=== PATIENT | female | born 2000 | race American Indian/Alaskan Native ===

== ENCOUNTER 2021-02-03 08:49 | Emergency (ER) | payer SELFPAY ==
--- NOTE | 2021-02-03 09:13 | EDM.PDOC ---
ED HPI GENERAL MEDICAL PROBLEM - General Chief Complaint: Respiratory Problem Stated Complaint: COUGH,RUNNY NOSE Time Seen by Provider: 02/03/21 08:53 Source of Information: Reports: Patient History Limitations: Reports: No Limitations - History of Present Illness INITIAL COMMENTS - FREE TEXT/NARRATIVE: Patient is a 20-year-old female who presents today for nasal congestion and runny nose for the past 3 days. Patient states that she has not tried any [id number] but states she is likely going to make sure that she not have an infection. Patient denies any facial pain or sinus pains no shortness of breath no fever chills no cough no nausea or vomiting or other complaints. Throat Pain Score (Numeric/FACES): 2 - Related Data Allergies Allergy/AdvReac Type Severity Reaction Status Date / Time No Known Allergies Allergy Verified 02/03/21 09:02 Home Meds: Home Meds . [No Known Home Meds] 02/03/21 [History] Past Medical History - Past Health History Medical/Surgical History: Denies Medical/Surgical History - Infectious Disease History Infectious Disease History: Reports: Measles Social & Family History - Family History Family Medical History: No Pertinent Family History - Tobacco Use Tobacco Use Status *Q: Never Tobacco User - Caffeine Use Caffeine Use: Reports: None - Recreational Drug Use Recreational Drug Use: No ED ROS GENERAL - Review of Systems Review Of Systems: See Below Constitutional: Reports: No Symptoms HEENT: Reports: Rhinitis Respiratory: Reports: No Symptoms Cardiovascular: Reports: No Symptoms Endocrine: Reports: No Symptoms GI/Abdominal: Reports: No Symptoms : Reports: No Symptoms Musculoskeletal: Reports: No Symptoms Skin: Reports: No Symptoms Neurological: Reports: No Symptoms Psychiatric: Reports: No Symptoms Hematologic/Lymphatic: Reports: No Symptoms Immunologic: Reports: No Symptoms ED EXAM, GENERAL - Physical Exam Exam: See Below Exam Limited By: No Limitations General Appearance: Alert, WD/WN, No Apparent Distress Nose: Normal Inspection, Normal Mucosa. No: Nasal Drainage Head: Atraumatic Neck: Normal Inspection, Supple Respiratory/Chest: No Respiratory Distress, Lungs Clear, Normal Breath Sounds Cardiovascular: Normal Peripheral Pulses, Regular Rate, Rhythm GI/Abdominal: Normal Bowel Sounds, Soft, Non-Tender Extremities: Normal Inspection, Normal Range of Motion Neurological: Alert, Oriented Course - Vital Signs Last Recorded V/S: Last Vital Signs Temp 96.3 F L 02/03/21 09:03 Pulse 69 02/03/21 09:03 Resp 16 02/03/21 09:03 BP 127/80 02/03/21 09:03 Pulse Ox 97 02/03/21 09:03 Departure - Departure Time of Disposition: 09:12 Disposition: Home, Self-Care 01 Condition: Good Clinical Impression: URI (upper respiratory infection) - Discharge Information *PRESCRIPTION DRUG MONITORING PROGRAM REVIEWED*: Not Applicable *COPY OF PRESCRIPTION DRUG MONITORING REPORT IN PATIENT HAIM: Not Applicable Instructions: Upper Respiratory Infection, Adult Referrals: PCP,None [Primary Care Provider] - Additional Instructions: The following information is given to patients seen in the emergency department who are being discharged to home. This information is to outline your options for follow-up care. We provide all patients seen in our emergency department with a follow-up referral. The need for follow-up, as well as the timing and circumstances, are variable depending upon the specifics of your emergency department visit. If you don't have a primary care physician on staff, we will provide you with a referral. We always advise you to contact your personal physician following an emergency department visit to inform them of the circumstance of the visit and for follow-up with them and/or the need for any referrals to a consulting specialist. The emergency department will also refer you to a specialist when appropriate. This referral assures that you have the opportunity for follow-up care with a specialist. All of these measure are taken in an effort to provide you with optimal care, which includes your follow-up. Under all circumstances we always encourage you to contact your private physician who remains a resource for coordinating your care. When calling for follow-up care, please make the office aware that this follow-up is from your recent emergency room visit. If for any reason you are refused follow-up, please contact the [facility] Emergency Department at and asked to speak to the emergency department charge nurse. Please follow up with your primary care physician. If you do not have a primary care physician, see below: [facility] [address] [place] [id number] [facility] [address] [place] [address] He was seen today for a runny nose and congestion. You likely have upper respiratory tract infection and we recommended taking [id number] medications for. If you develop any fever chills other concerning symptom please return to the ED otherwise follow-up with your primary care physician. Sepsis Event Note (ED) - Evaluation Sepsis Screening Result: No Definite Risk - Focused Exam Vital Signs: Vital Signs Temp Pulse Resp BP Pulse Ox 02/03/21 09:03 96.3 F L 69 16 127/80 97 - Assessment/Plan Plan: Patient is a 20-year-old female presents today for nasal congestion. Patient on exam lungs are clear vital signs are stable likely be URI patient presents try [id number] medication.
== END 2021-02-03 09:21 | disposition home or self-care (01) ==
LOC: MW.ED 08:49
DX: J06.9 Acute upper respiratory infection, unspecified (principal)
CPT/HCPCS: 99283

== ENCOUNTER 2023-02-08 07:59 | Emergency (ER) | payer SELFPAY ==
[2023-02-08 08:23] LABS: APPEARANCE,URINE CLEAR; BILIRUBIN,URINE NEGATIVE (NEGATIVE); COLOR,URINE YELLOW; GLUCOSE,URINE NEGATIVE (NEGATIVE); KETONES,URINE NEGATIVE (NEGATIVE); LEUKOCYTE ESTERASE,URINE NEGATIVE (NEGATIVE); NITRITE,URINE NEGATIVE (NEGATIVE); OCCULT BLOOD,URINE MODERATE (NEGATIVE); PROTEIN,URINE NEGATIVE (NEGATIVE); UROBILINOGEN,URINE 0.2 EU/dL (<2.0)
[2023-02-08 08:23] LABS: BASOPHILS PERCENT AUTO 0.2 % (0.0-1.5); EOSINOPHILS ABSOLUTE AUTO 0.1 K/uL (0.0-0.7); EOSINOPHILS PERCENT AUTO 1.2 % (0.0-7.0); HEMATOCRIT 34.2 % (36.0-46.0); HEMOGLOBIN 10.3 g/dL (12.0-16.0); LYMPHOCYTES ABSOLUTE AUTO 2.4 K/uL (0.6-2.4); LYMPHOCYTES PERCENT AUTO 27.6 % (16.0-40.0); MEAN CORPUSCULAR HEMOGLOBIN 22.1 pg (27.0-32.0); MEAN CORPUSCULAR HGB CONC 30.1 g/dL (31.0-37.0); MEAN CORPUSCULAR VOLUME 73.4 fL (80.0-98.0); MONOCYTES ABSOLUTE AUTO 0.4 K/uL (0.0-0.8); MONOCYTES PERCENT AUTO 4.2 % (0.0-15.0); NEUTROPHILS ABSOLUTE AUTO 5.8 K/uL (1.4-5.7); NEUTROPHILS PERCENT AUTO 66.8 % (48.0-80.0); NRBC ABSOLUTE 0 K/uL; PLATELET COUNT,PLT 426 K/uL (150-400); RED BLOOD CELL COUNT 4.66 M/uL (4.30-5.90); WHITE BLOOD CELL COUNT,WBC 8.65 K/uL (4.0-11.0)
[2023-02-08 08:40] LABS: EPITHELIAL CELLS,URINE FEW (NONE-FEW); RBC,URINE 0-3 (0-2/HPF); WBC,URINE 0-2 (0-5/HPF)
[2023-02-08 08:51] LABS: A/G RATIO 0.8 (0.9-1.6); ALBUMIN 3.5 g/dL (3.4-5.0); BILIRUBIN TOTAL 0.4 mg/dL (0.2-1.0); CALCIUM 8.8 mg/dL (8.5-10.1); CARBON DIOXIDE,CO2 28.2 mmol/L (21.0-32.0); CREATININE 0.8 mg/dL (0.6-1.0); EST CRCL DRUG DOSING (CG) 102.39 mL/min; POTASSIUM,K 3.9 mmol/L (3.5-5.1); PROTEIN TOTAL,TP 7.7 g/dL (6.4-8.2)
== END 2023-02-08 09:12 | disposition home or self-care (01) ==
LOC: MW.ED 07:59
DX: O20.9 Hemorrhage in early pregnancy, unspecified (principal)
CPT/HCPCS: 36415; 80053; 81001; 84702; 85025; 86900; 86901; 99283; 99284

== ENCOUNTER 2023-02-10 10:50 | Emergency (ER) | payer SELFPAY | END 2023-02-10 13:45 | disposition home or self-care (01) | LOC: MW.ED 10:50 | DX: O20.9 Hemorrhage in early pregnancy, unspecified (principal) | CPT/HCPCS: 99283 ==

== ENCOUNTER 2024-12-14 18:45 | Inpatient (IN) | payer SELFPAY ==
[2024-12-14] MEDS ORDERED: Sodium Chloride 0.9% 2.5 ML Syringe FLUSH PRN (20:18)
[2024-12-14] MEDS ORDERED: Lidocaine 1% 50 ML MDV INJECT PRN (20:18)
[2024-12-14] MEDS ORDERED: Sodium Chloride 0.9% 20 ML SDV IV PRN (20:18)
[2024-12-14] MEDS ORDERED: Misoprostol 200 MCG Tab PO PRN (20:18)
[2024-12-14] MEDS ORDERED: Sodium Chloride 0.9% 10 ML Syringe FLUSH PRN (20:18)
[2024-12-14] MEDS ORDERED: Methylergonovine 0.2 MG/1 ML Amp IM PRN (20:18)
[2024-12-14] MEDS ORDERED: Carboprost Tromethamine 250 MCG/1 mL Vial IM PRN (20:18)
[2024-12-14] MEDS ORDERED: Water For Irrigation,Sterile 1,000 ML Container IRR PRN (20:18)
[2024-12-14] MEDS ORDERED: Terbutaline 1 MG/ML SDV SUBCUT PRN (20:18)
[2024-12-14] MEDS ORDERED: Ondansetron 4 MG/2 ML SDV IVPUSH PRN (20:18)
[2024-12-14] MEDS ORDERED: Oxytocin/0.9 % Sodium Chloride 30 UNIT/500 ML BAG IV SCH (20:30)
[2024-12-14] MEDS: Dinoprostone 10 MG Insert VAG PRN (21:12)
[2024-12-14] MEDS: Ampicillin 2 GM in Sodium Chloride 0.9% 100 ML IV ONE (21:13)
[2024-12-14 21:34] LABS: HEMATOCRIT 30.4 % (37.0-47.0); MEAN CORPUSCULAR HEMOGLOBIN 26.7 pg (28.0-32.0); MEAN CORPUSCULAR HGB CONC 32.9 g/dL (32.0-36.0); MEAN CORPUSCULAR VOLUME 81.3 fL (83.0-99.0); MEAN PLATELET VOLUME 10.8 fL (9.4-12.3); PLATELET COUNT,PLT 358 K/uL (150-400); RED BLOOD CELL COUNT 3.74 M/uL (4.10-5.30); WHITE BLOOD CELL COUNT,WBC 10.45 K/uL (3.9-11.3)
[2024-12-14] MEDS: Tranexamic Acid in NACL,ISO-OS 1,000 MG in Premix Bag 1 BAG IV ONE (22:06)
[2024-12-15] MEDS: Ampicillin 1 GM in Sodium Chloride 0.9% 50 ML IV SCH (00:47)
[2024-12-15] MEDS ORDERED: Phenylephrine HCl In 0.9% NaCl 1 MG/10 ML Syringe IVPUSH PRN (07:28)
[2024-12-15] MEDS ORDERED: ePHEDrine 50 MG/ML SDV IVPUSH PRN (07:28)
[2024-12-15] MEDS ORDERED: dexmedeTOMIDine HCl 200 MCG/2 ML SDV EPIDUR SCH (07:30)
[2024-12-15] MEDS: Oxytocin/0.9 % Sodium Chloride 30 UNIT/500 ML BAG IV SCH (09:53)
[2024-12-15] MEDS: Lactated Ringers 1,000 ML IV SCH (14:52)
[2024-12-15] MEDS: Butorphanol 1 MG/ML SDV IVPUSH PRN (21:02)
[2024-12-16] MEDS: Ropivacaine HCl/PF 400 MG in Premix Bag 1 BAG EPIDUR SCH (03:02)
[2024-12-16] MEDS ORDERED: Bupivacaine 0.5% 10 ML SDV ONE (18:12)
[2024-12-16] MEDS ORDERED: fentaNYL 100 MCG/2 ML SDV ONE ×2 (18:12→18:42)
[2024-12-16] MEDS ORDERED: Ondansetron 4 MG/2 ML SDV ONE (18:14)
[2024-12-16] MEDS ORDERED: Morphine PF 10 MG/10 ML SDV ONE (18:21)
[2024-12-16] MEDS ORDERED: Oxytocin 10 Units/1 ML SDV ONE (18:21)
[2024-12-16] MEDS ORDERED: Dexamethasone 4 MG/ML 5 ML MDV ONE (18:21)
[2024-12-16] MEDS ORDERED: ceFAZolin 2 GM Vial ONE (18:32)
[2024-12-16] MEDS ORDERED: Midazolam 1 MG/ML 2 ML SDV ONE (18:37)
[2024-12-16] MEDS ORDERED: Ropivacaine 0.5% 5 MG/ML 30 ML SDV ONE (18:48)
[2024-12-16] MEDS ORDERED: Ondansetron 4 MG/2 ML SDV IVPUSH PRN ×3 (18:59→19:44)
[2024-12-16] MEDS ORDERED: Phenylephrine HCl In 0.9% NaCl 1 MG/10 ML Syringe IVPUSH PRN (18:59)
[2024-12-16] MEDS ORDERED: fentaNYL 100 MCG/2 ML SDV IVPUSH PRN (18:59)
[2024-12-16] MEDS ORDERED: Metoclopramide 10 MG/2 ML SDV IVPUSH PRN (18:59)
[2024-12-16] MEDS ORDERED: HYDROmorphone 1 MG/ML Syringe IVPUSH PRN (18:59)
[2024-12-16] MEDS ORDERED: Nalbuphine 10 MG/1 ML Vial IVPUSH PRN (18:59)
[2024-12-16] MEDS ORDERED: diphenhydrAMINE 50 MG/ML SDV IVPUSH PRN (18:59)
[2024-12-16] MEDS ORDERED: Morphine 2 MG/ML SYRINGE IVPUSH PRN (18:59)
[2024-12-16] MEDS ORDERED: Naloxone 0.4 MG/ML SDV IVPUSH PRN ×2 (18:59→19:44)
[2024-12-16] MEDS ORDERED: Albuterol 0.083% 2.5 MG/3 ML Neb Soln NEB PRN (18:59)
[2024-12-16] MEDS ORDERED: fentaNYL 50 MCG/ML SDV IVPUSH PRN (18:59)
[2024-12-16] MEDS ORDERED: Aluminum Hydroxide/Magnesium Hydroxide/Simethicone Susp 30 ML Cup PO PRN (19:44)
[2024-12-16] MEDS ORDERED: Oxytocin 10 Units/1 ML SDV IM PRN (19:44)
[2024-12-16] MEDS ORDERED: Acetaminophen/oxyCODONE 325-5 MG Tab PO PRN ×2 (19:44)
[2024-12-16] MEDS ORDERED: Bisacodyl 10 MG Supp RECTAL PRN (19:44)
[2024-12-16] MEDS ORDERED: Misoprostol 200 MCG Tab RECTAL PRN (19:44)
[2024-12-16] MEDS ORDERED: Methylergonovine 0.2 MG/1 ML Amp IM PRN (19:44)
[2024-12-16] MEDS ORDERED: Lanolin 100% Cream 7 GM Tube TOP PRN (19:44)
[2024-12-16] MEDS ORDERED: Lactated Ringers 1,000 ML IV SCH (19:45)
[2024-12-16 20:32] LABS: PH,UMBILICAL ARTERIAL 7.27 (7.18-7.38); PH,UMBILICAL VENOUS 7.33 (7.25-7.45)
[2024-12-16] MEDS: Docusate Sodium 100 MG Cap PO SCH (21:00)
[2024-12-16] MEDS: Ketorolac 30 MG/ML SDV IVPUSH SCH (21:54)
[2024-12-16] MEDS: diphenhydrAMINE 50 MG/ML SDV IVPUSH PRN (21:55)
[2024-12-17] MEDS: Simethicone 80 MG Tab.Chew PO SCH (00:31)
[2024-12-17 06:30] LABS: HEMATOCRIT 26.9 % (37.0-47.0); HEMOGLOBIN 8.7 g/dL (12.0-16.0)
[2024-12-17] MEDS: Sodium Ferric Gluconate Cmplex 125 MG in Sodium Chloride 0.9% 100 ML IV SCH (11:17)
[2024-12-18] MEDS: Ibuprofen 800 MG Tab PO PRN (05:21)
[2024-12-18 06:20] LABS: HEMATOCRIT 24.5 % (37.0-47.0); HEMOGLOBIN 7.8 g/dL (12.0-16.0); MEAN CORPUSCULAR HEMOGLOBIN 26.4 pg (28.0-32.0); MEAN CORPUSCULAR HGB CONC 31.8 g/dL (32.0-36.0); MEAN CORPUSCULAR VOLUME 83.1 fL (83.0-99.0); MEAN PLATELET VOLUME 10.4 fL (9.4-12.3); NRBC ABSOLUTE 0.02 K/uL (0.00-0.02); NRBC PERCENT 0.2 /100WBC (0.0-0.2); PLATELET COUNT,PLT 335 K/uL (150-400); RED BLOOD CELL COUNT 2.95 M/uL (4.10-5.30); WHITE BLOOD CELL COUNT,WBC 11.34 K/uL (3.9-11.3)
[2024-12-18] MEDS: Acetaminophen/oxyCODONE 325-5 MG Tab PO PRN (07:54)
[2024-12-18] MEDS: Measles, Mumps & Rubella Vaccine 0.5 ML SDV SUBCUT ONE (09:00)
[2024-12-18] MEDS: Ferrous Sulfate 325 MG Tab PO SCH (09:37)
== END 2024-12-18 10:14 | disposition home or self-care (01) | DRG 787 ==
LOC: MW.OB 18:45 → OBSVTOIN 12-16 18:45 → MW.OB 12-17 00:21
PROVIDERS: ADMIT Obstetrics & Gynecology; ATTEND Obstetrics & Gynecology
PROC: 3E0P7VZ Introduction of Hormone into Female Reproductive, Via Natural or Artificial Opening (ICD-10-PCS; 2024-12-16)
PROC: 3E033VJ Introduction of Other Hormone into Peripheral Vein, Percutaneous Approach (ICD-10-PCS; 2024-12-16)
PROC: 10907ZC Drainage of Amniotic Fluid, Therapeutic from Products of Conception, Via Natural or Artificial Opening (ICD-10-PCS; 2024-12-16)
PROC: 3E0R3BZ Introduction of Anesthetic Agent into Spinal Canal, Percutaneous Approach (ICD-10-PCS; 2024-12-16)
PROC: 00HU33Z Insertion of Infusion Device into Spinal Canal, Percutaneous Approach (ICD-10-PCS; 2024-12-16)
PROC: 10D00Z1 Extraction of Products of Conception, Low, Open Approach (ICD-10-PCS; principal; 2024-12-16 18:30)
PROC: 3E0234Z Introduction of Serum, Toxoid and Vaccine into Muscle, Percutaneous Approach (ICD-10-PCS; 2024-12-17)
DX: O41.03X0 Oligohydramnios, third trimester, not applicable or unspecified (principal); D62 Acute posthemorrhagic anemia; O99.02 Anemia complicating childbirth; O99.214 Obesity complicating childbirth; E66.01 Morbid (severe) obesity due to excess calories; O62.1 Secondary uterine inertia; O99.824 Streptococcus B carrier state complicating childbirth; Z37.0 Single live birth; Z87.891 Personal history of nicotine dependence; Z23 Encounter for immunization; Z3A.37 37 weeks gestation of pregnancy
CPT/HCPCS: 01967; 01968; 36415; 51702; 59025; 64488; 82803; 85014; 85018; 85027; 86592; 86850; 86900; 86901; 90707; A9270-GY; G0009; J0290; J0595; J0665; J0690; J1100; J1200; J1885; J2250; J2274; J2405; J2590; J2795; J2916; J3010; J7120